=== PATIENT | female | born 1975 | race Caucasian/White ===

== ENCOUNTER 2023-10-08 02:03 | Emergency (ER) | payer MEDICARE, OTHER ==
[~2023-10-08] VITALS: Ht 185.4 cm; Wt 130.6 kg
[2023-10-08] MEDS ORDERED: NITROGLYCERIN PACKET 1 GM PACKET TD ONE (03:00)
[2023-10-08] MEDS ORDERED: NITROGLYCERIN PACKET 1 GM PACKET ONE (03:01)
[2023-10-08 03:06] LABS: MEAN CORPUSCULAR VOLUME 87 fL (82-100)
[2023-10-08 03:10] LABS: BASOPHILS % (AUTO) 0.1 % (0.0-2.0); EOSINOPHILS # (AUTO) 0.2 K/uL (0.0-0.7); EOSINOPHILS % (AUTO) 1.3 % (0.0-6.0); HEMATOCRIT 27 % (33-45); HEMOGLOBIN 8.9 g/dL (11.5-14.8); LYMPHOCYTES # (AUTO) 1.4 K/uL (0.8-4.8); LYMPHOCYTES % (AUTO) 9.8 % (20.0-44.0); MEAN CORPUSCULAR HEMOGLOBIN 29 PG (26.0-33.0); MEAN CORPUSCULAR HGB CONC 33 g/dl (31.0-36.0); MONOCYTES # (AUTO) 1.2 K/uL (0.1-1.30); MONOCYTES % (AUTO) 8.7 % (2.0-12.0); NEUTROPHILS # (AUTO) 11.4 K/uL (1.8-8.9); NEUTROPHILS % (AUTO) 80.1 % (43.0-81.0); PLATELET COUNT (AUTO) 129 K/uL (150-450); RED BLOOD CELL COUNT(AUTO) 3.12 MIL/uL (4.0-5.2); RED CELL DISTRIBUTION WIDTH 18.3 % (11.5-15.0); WHITE BLOOD COUNT (AUTO) 14.3 K/uL (4.3-11.0)
[2023-10-08 03:12] LABS: INR 1.02 (0.91-1.10); PARTIAL THROMBOPLASTIN TIME 30.7 SEC (24.3-34.3); PROTHROMBIN TIME 10.8 SECS (9.2-11.1)
[2023-10-08 03:20] LABS: CALCIUM, SERUM 8.2 mg/dL (8.5-10.1); CARBON DIOXIDE 22 mmol/L (21-32); CHLORIDE 100 mmol/L (98-107); CREATININE 5.1 mg/dL (0.6-1.3); GLUCOSE 102 mg/dL (74-106); SODIUM SERUM 136 mmol/L (136-145); UREA NITROGEN, BLOOD 78 mg/dL (7-18)
[2023-10-08] MEDS ORDERED: CEFTRIAXONE 1GM BAG (ER ONLY) 50 ML IV ONE ×2 (03:30→03:35)
[2023-10-08 03:32] LABS: ALANINE AMINOTRANSFERASE 36 U/L (12-78); ALBUMIN 1.6 g/dL (3.4-5.0); ALKALINE PHOSPHATASE 62 U/L (46-116); ASPARTATE AMINOTRANSFERASE 46 U/L (15-37); BILIRUBIN,DIRECT 0.1 mg/dL (0.0-0.2); BILIRUBIN,TOTAL 0.4 mg/dL (0.2-1.0); NT-PRO BNP > 25000 pg/mL (0-125)
[2023-10-08] MEDS ORDERED: MORPHINE SULFATE INJ 2 MG/ML DISP.SYRIN ONE ×2 (03:35→06:51)
[2023-10-08] MEDS ORDERED: ASPIRIN 325 MG TABLET PO ONE (04:00)
[2023-10-08] MEDS ORDERED: MORPHINE SULFATE INJ 2 MG/ML DISP.SYRIN IV ONE ×2 (04:00→07:00)
[2023-10-08] MEDS ORDERED: ASPIRIN 325 MG TABLET ONE (04:06)
[2023-10-08] MEDS ORDERED: hydrALAZINE HCL IV 20 MG VIAL ONE ×2 (04:28→10:46)
[2023-10-08] MEDS ORDERED: hydrALAZINE HCL IV 20 MG VIAL IV ONE ×3 (04:30→11:00)
[2023-10-08 12:12] VITALS: BP 180/108; TEMP 98; O2SAT 95
== END 2023-10-08 12:12 | disposition short-term general hospital (02) ==
LOC: ER 02:08
DX: I21.4 Non-ST elevation (NSTEMI) myocardial infarction (principal); E87.70 Fluid overload, unspecified; I50.9 Heart failure, unspecified; R06.00 Dyspnea, unspecified; R10.2 Pelvic and perineal pain; Z88.1 Allergy status to other antibiotic agents
CPT/HCPCS: 99291; 74176; 96365; 96375; 93005; 71045; 96376; 85025; 80048; 87040 ×2; 83605; 80076; 36415; 84484 ×2; 85730; 83880; 84702; J0360 ×2; J2270 ×2; J0696